=== PATIENT | male | born 1955 | race African-American/Black ===

== ENCOUNTER 2017-03-15 09:59 | Outpatient (CLI) | payer MEDICARE ==
--- NOTE | 2017-03-15 11:15 | RAD ---
THREE VIEWS OF THE LEFT FOOT: Date: 03-15-17 History: Left foot pain for two months. 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 Lisfranc joint is n ormally aligned. There is no fracture or dislocation seen. Plantar calcaneal enthesophyte is identif ied. Minimal degenerative changes are seen at the tarsal bones. There is subcutaneous edema dorsal a spect of the foot. IMPRESSION: Subcutaneous edema without evidence of an acute osseous abnormality left foot. POS: [facility]
== END 2017-03-15 10:00 | disposition home or self-care (01) ==
LOC: NAV RAD 09:59
PROVIDERS: ATTEND Nurse Practitioner Family
DX: M79.672 Pain in left foot (principal); R60.9 Edema, unspecified

== ENCOUNTER 2017-04-06 09:32 | Emergency (ER) | payer MEDICARE ==
[2017-04-06] MEDS ORDERED: HYDROcodone/Acetaminophen 10/325 mg Tablet ONE (10:12)
--- NOTE | 2017-04-06 10:32 | RAD ---
LEFT RIBS 4 VIEWS CHEST 1 VIEW: Date: 04/06/17 HISTORY: Fall. Left chest injury. FINDINGS: No displaced rib fracture or pneumothorax evident. The cardiac silhouette and pulmonary vasculature are within normal limits. There is no lobar consolidation apparent. IMPRESSION: No significant abnormalities are demonstrated. POS: [facility]
--- NOTE | 2017-04-06 10:45 | RAD ---
3 VIEWS LEFT SHOULDER: Date; 04/06/17 HISTORY: Fell in a hole yesterday and hit left side of back, shoulder, and foot. Injury after a fall. FINDINGS: There is mild acromioclavicular joint osteoarthritis. The coracoclavicular and acromioclavicular dis tances are within normal limits. No fracture, dislocation, or other osseous abnormality seen involvi ng the left shoulder. IMPRESSION: 1. No acute fracture. 2. Mild acromioclavicular joint osteoarthritis. POS: [facility]
--- NOTE | 2017-04-06 10:47 | RAD ---
LEFT FOOT 3 VIEWS: Date: 04/06/17 HISTORY: Fell in hole yesterday, foot pain. COMPARISON: Left foot dated 03/30/17. FINDINGS: No acute fracture or malalignment. Mild flat foot deformity. Moderate plantar and dorsal calcaneal spurs. There are some calcifications of the Achilles tendon in sertion. There is some soft tissue edema and thickening over the mid foot plantar soft tissues. IMPRESSION: No acute fracture or malalignment. POS: [facility]
== END 2017-04-06 10:43 | disposition home or self-care (01) ==
LOC: NAV ERS 09:32
DX: S40.012A Contusion of left shoulder, initial encounter (principal); S20.212A Contusion of left front wall of thorax, initial encounter; S90.32XA Contusion of left foot, initial encounter; E78.5 Hyperlipidemia, unspecified; E11.9 Type 2 diabetes mellitus without complications; I10 Essential (primary) hypertension; Z79.82 Long term (current) use of aspirin; Z79.891 Long term (current) use of opiate analgesic; Z79.899 Other long term (current) drug therapy; V84.9XXA Unspecified occupant of special agricultural vehicle injured in nontraffic accident, initial encounter

== ENCOUNTER → 2022-04-22 | Emergency (ER) | payer OTHER, MEDICARE | LOC: NAV ERS 16:32 | DX: M54.2 Cervicalgia (principal); E78.00 Pure hypercholesterolemia, unspecified; E11.9 Type 2 diabetes mellitus without complications; I10 Essential (primary) hypertension; V89.2XXA Person injured in unspecified motor-vehicle accident, traffic, initial encounter; I25.2 Old myocardial infarction | CPT/HCPCS: 99283 ==

== ENCOUNTER 2024-07-01 15:36 | Emergency (ER) | payer OTHER ==
[2024-07-01] MEDS ORDERED: Methocarbamol 500 MG TAB ONE (16:16)
[2024-07-01] MEDS ORDERED: Ketorolac Tromethamine 30 MG (1 mL) VIAL ONE (16:16)
[2024-07-01] MEDS ORDERED: Acetaminophen 325 MG TAB ONE (16:16)
[2024-07-01] MEDS ORDERED: HYDROcodone/Acetaminophen 5/325 mg Tablet ONE (16:16)
== END 2024-07-01 17:01 | disposition home or self-care (01) ==
LOC: NAV ERS 15:36
DX: M54.50 Low back pain, unspecified (principal); M54.2 Cervicalgia; I10 Essential (primary) hypertension; E11.9 Type 2 diabetes mellitus without complications; E78.00 Pure hypercholesterolemia, unspecified; Z79.899 Other long term (current) drug therapy; Z79.85 Long-term (current) use of injectable non-insulin antidiabetic drugs
CPT/HCPCS: 96372; 99283; J1885